=== PATIENT | male | born 1955 | race Caucasian/White ===

== ENCOUNTER 2020-09-03 16:07 | Emergency (ER) | payer MEDICARE ==
[~2020-09-03] VITALS: Ht 165.1 cm; Wt 77.1 kg
[2020-09-03] MEDS ORDERED: CEPHALEXIN500 M1 PO (18:10)
== END 2020-09-03 19:36 | disposition home or self-care (01) ==
LOC: ED 16:07
DX: S61.213A Laceration without foreign body of left middle finger without damage to nail, initial encounter (principal); X58.XXXA Exposure to other specified factors, initial encounter; Y93.89 Activity, other specified; Y92.89 Other specified places as the place of occurrence of the external cause; Y99.8 Other external cause status

== ENCOUNTER → 2022-11-08 | Outpatient (CLI) | payer MEDICARE, MEDICAID ==
[~2022-11-08] MED LIST: CEPHALEXIN500 M1 PO
== END | disposition home or self-care (01) ==
LOC: COVID19 07:57
PROVIDERS: ATTEND Internal Medicine
DX: U07.1 COVID-19 (principal)